=== PATIENT | female | born 2005 | race Two or more races ===

== ENCOUNTER 2024-09-03 11:00 | Outpatient (CLI) | payer OTHER | END 2024-09-03 11:27 | disposition home or self-care (01) | LOC: SONOGRAMA 11:00 | PROVIDERS: ATTEND Pathology Anatomic Pathology & Clinical Pathology | DX: E04.1 Nontoxic single thyroid nodule (principal); R59.0 Localized enlarged lymph nodes; D34 Benign neoplasm of thyroid gland; Q18.0 Sinus, fistula and cyst of branchial cleft ==